=== PATIENT | male | born 1970 | race African-American/Black ===

== ENCOUNTER 2022-10-15 07:30 | Inpatient (IN) ==
[2022-10-11 11:42] LABS: Basophils % 0.5 % (0.0-0.8); Eosinophils # 0.2 10*3/uL (0.0-0.87); Eosinophils % 2.6 % (0.00-10.9); Hematocrit 46.1 VOL% (42.0-52.0); Immature Granulocytes % 0.3 %; Immature Granulocytes Absolute 0.02 #; Lymphocytes # 2.1 10*3/uL (1.4-4.0); Lymphocytes % 35.5 % (21.2-54.2); Mean Corpuscular HGB Conc 32.5 GM/DL (32-36); Mean Corpuscular Volume 85.4 FL (87-102); Mean Platelet Volume 10.2 FL (9.6-12.0); Monocytes # 0.4 10*3/uL (0.11-0.8); Monocytes % 6.3 % (1.7-12.7); Neutrophils % 54.8 % (38.7-73.9); Platelet Count 281 T/CUMM (130-400); Red Cell Distribution Width 14.1 % (9.3-17.3); White Blood Count 5.8 T/CUMM (4-12)
[2022-10-11 11:55] LABS: Albumin 4.1 G/DL (3.4-5.0); Bilirubin,Total 0.6 MG/DL (0.20-1.00); Calcium 9.4 MG/DL (8.5-10.1); Osmolality,Calculated 272.8 MOS/KG (273-304); Potassium 3.7 MMOL/L (3.5-5.1); Total Protein 7.7 G/DL (6.4-8.2)
[~2022-10-15 07:30] MED LIST: ALVIMOPAN 12 MG CAPSULE PO ONE; cefTRIAXone 1,000 MG in SODIUM CHLORIDE 0.9% 100 ML IV ONE
[2022-10-15] MEDS ORDERED: ACETAMINOPHEN 500 MG TABLET PO ONE (08:22)
[2022-10-15] MEDS ORDERED: DIAZEPAM 5 MG TABLET PO ONE (08:22)
[2022-10-15] MEDS ORDERED: GABAPENTIN 400 MG CAPSULE PO ONE (08:22)
[2022-10-15] MEDS ORDERED: FAMOTIDINE 20 MG TABLET PO ONE (08:22)
[2022-10-15] MEDS: LACTATED RINGERS 1,000 ML IV SCH (08:26)
[2022-10-15] MEDS ORDERED: buprenorphine HCL 0.3 MG/ML VIAL ONE (11:57)
[2022-10-15] MEDS ORDERED: ROCURONIUM 50 MG/5 ML VIAL IV ONE ×2 (12:03→14:45)
[2022-10-15] MEDS ORDERED: propofoL 200 MG/20 ML VIAL IV ONE (12:03)
[2022-10-15] MEDS ORDERED: LIDOCAINE 2% 5 ML VIAL ONE (12:03)
[2022-10-15] MEDS ORDERED: fentaNYL 100 MCG/2 ML VIAL ONE (12:04)
[2022-10-15] MEDS ORDERED: MIDAZOLAM 2 MG/2 ML VIAL ONE (12:04)
[2022-10-15] MEDS ORDERED: ePHEDrine 50 MG/ML VIAL ONE (14:15)
[2022-10-15] MEDS ORDERED: ONDANSETRON 4 MG/2 ML VIAL ONE (15:17)
[2022-10-15] MEDS ORDERED: DEXAMETHASONE 4 MG/1 ML VIAL ONE (15:17)
[2022-10-15] MEDS ORDERED: LACTATED RINGERS 1,000 ML IV ONE ×2 (15:24→16:00)
[2022-10-15] MEDS ORDERED: MEPERIDINE 25 MG/1 ML VIAL IV PRN (15:29)
[2022-10-15] MEDS ORDERED: PROMETHAZINE INJ 25 MG in SODIUM CHLORIDE 0.9% 50 ML IV PRN (15:29)
[2022-10-15] MEDS ORDERED: ONDANSETRON 4 MG/2 ML VIAL IV PRN ×2 (15:29→16:48)
[2022-10-15] MEDS ORDERED: HYDROmorphone 1 MG/1 ML SYRINGE IV PRN ×2 (15:29→16:48)
[2022-10-15] MEDS ORDERED: GLYCOPYRROLATE 0.4 MG/2 ML VIAL ONE ×2 (15:33→16:07)
[2022-10-15] MEDS ORDERED: NEOSTIGMINE 10 MG/10 ML VIAL ONE (16:07)
[2022-10-15] MEDS ORDERED: ROPIVACAINE 0.5% 30 ML VIAL ONE (16:43)
[2022-10-15] MEDS ORDERED: PROMETHAZINE 25 MG/1 ML VIAL IM PRN (16:48)
[2022-10-15] MEDS ORDERED: SIMETHICONE CHEW 125 MG TABLET PO PRN (16:48)
[2022-10-15] MEDS ORDERED: oxyCODONE/ACETAMINOPHEN 5-325 MG TABLET PO PRN (16:48)
[2022-10-15] MEDS ORDERED: diphenhydrAMINE 50 MG/1 ML VIAL IV PRN (16:48)
[2022-10-15] MEDS ORDERED: hydrALAZINE 25 MG TABLET PO PRN (16:51)
[2022-10-15] MEDS ORDERED: SEVOFLURANE 1 UNIT/15 MINUTE INH ONE (16:55)
[2022-10-15 17:27] LABS: Mucus,Urine Few /LPF (Occasional); RBC,Urine 13 /HPF (0-4)
[2022-10-15 17:28] LABS: Bilirubin,Urine Negative (Negative); Blood, Urine Small mg/dL (Negative); Glucose,Urine (UA) Negative (Negative); Ketones,Urine 15 mg/dL (Negative); Nitrite,Urine Negative (Negative); Protein,Urine Negative (Negative); Urine Appearance Clear (Clear); Urine Color Yellow (Yellow); Urine Specific Gravity >= 1.030 (1.001-1.035); Urine Urobilinogen 0.2 eU/dL (<2.0)
[2022-10-15] MEDS: ACETAMINOPHEN 325 MG TABLET PO SCH ×2 (17:43→23:17)
[2022-10-15 17:58] LABS: Basophils % 0.2 % (0.0-0.8); Eosinophils % 0.3 % (0.00-10.9); Hematocrit 43.5 VOL% (42.0-52.0); Hemoglobin 13.8 GM/DL (14.0-18.0); Immature Granulocytes % 0.6 %; Immature Granulocytes Absolute 0.07 #; Lymphocytes # 1.2 10*3/uL (1.4-4.0); Lymphocytes % 10.5 % (21.2-54.2); Mean Corpuscular HGB Conc 31.7 GM/DL (32-36); Mean Corpuscular Volume 87.3 FL (87-102); Mean Platelet Volume 9.9 FL (9.6-12.0); Monocytes # 0.3 10*3/uL (0.11-0.8); Monocytes % 2.3 % (1.7-12.7); Neutrophils % 86.1 % (38.7-73.9); Platelet Count 272 T/CUMM (130-400); Red Blood Count 4.98 MC/CUMM (3.8-5.5); Red Cell Distribution Width 13.8 % (9.3-17.3); White Blood Count 11.8 T/CUMM (4-12)
[2022-10-15] MEDS: cefTRIAXone 1,000 MG in SODIUM CHLORIDE 0.9% 100 ML IV SCH (18:07)
[2022-10-15] MEDS: SODIUM CHLORIDE 0.9% 1,000 ML IV SCH (18:07)
[2022-10-15 18:54] LABS: Calcium 8.6 MG/DL (8.5-10.1); Osmolality,Calculated 275.7 MOS/KG (273-304); Potassium 3.7 MMOL/L (3.5-5.1)
[2022-10-15] MEDS: OXYBUTYNIN 5 MG TABLET PO SCH (21:10)
[2022-10-15] MEDS: ALVIMOPAN 12 MG CAPSULE PO SCH (21:10)
[2022-10-15] MEDS: DOCUSATE SODIUM 100 MG CAPSULE PO SCH (21:10)
[2022-10-16] MEDS: SODIUM CHLORIDE 0.9% 1,000 ML IV SCH (01:00)
[2022-10-16 05:12] LABS: Basophils % 0.1 % (0.0-0.8); Hematocrit 40.1 VOL% (42.0-52.0); Hemoglobin 12.8 GM/DL (14.0-18.0); Immature Granulocytes % 0.3 %; Immature Granulocytes Absolute 0.03 #; Lymphocytes # 1.2 10*3/uL (1.4-4.0); Lymphocytes % 10.8 % (21.2-54.2); Mean Corpuscular HGB Conc 31.9 GM/DL (32-36); Mean Corpuscular Volume 86.6 FL (87-102); Mean Platelet Volume 9.7 FL (9.6-12.0); Monocytes # 0.6 10*3/uL (0.11-0.8); Monocytes % 5.8 % (1.7-12.7); Platelet Count 256 T/CUMM (130-400); Red Blood Count 4.63 MC/CUMM (3.8-5.5); Red Cell Distribution Width 13.9 % (9.3-17.3)
[2022-10-16 05:17] LABS: Calcium 8.3 MG/DL (8.5-10.1); Osmolality,Calculated 279.3 MOS/KG (273-304)
[2022-10-16] MEDS: ACETAMINOPHEN 325 MG TABLET PO SCH ×4 (06:54→23:56)
[2022-10-16] MEDS: DOCUSATE SODIUM 100 MG CAPSULE PO SCH ×2 (10:40→21:41)
[2022-10-16] MEDS: OXYBUTYNIN 5 MG TABLET PO SCH ×3 (10:40→21:41)
[2022-10-16] MEDS: ALVIMOPAN 12 MG CAPSULE PO SCH ×2 (10:40→21:41)
[2022-10-16] MEDS: cefTRIAXone 1,000 MG in SODIUM CHLORIDE 0.9% 100 ML IV SCH (16:48)
[2022-10-17] MEDS: ACETAMINOPHEN 325 MG TABLET PO SCH ×2 (05:18→12:13)
[2022-10-17 05:20] LABS: Basophils % 0.1 % (0.0-0.8); Eosinophils # 0.1 10*3/uL (0.0-0.87); Eosinophils % 1.4 % (0.00-10.9); Hemoglobin 12.2 GM/DL (14.0-18.0); Immature Granulocytes % 0.4 %; Immature Granulocytes Absolute 0.03 #; Lymphocytes # 2.2 10*3/uL (1.4-4.0); Lymphocytes % 26.7 % (21.2-54.2); Mean Corpuscular HGB Conc 32.1 GM/DL (32-36); Mean Platelet Volume 9.8 FL (9.6-12.0); Monocytes # 0.6 10*3/uL (0.11-0.8); Monocytes % 7.1 % (1.7-12.7); Neutrophils % 64.3 % (38.7-73.9); Platelet Count 225 T/CUMM (130-400); Red Blood Count 4.37 MC/CUMM (3.8-5.5); White Blood Count 8.3 T/CUMM (4-12)
[2022-10-17 05:42] LABS: Calcium 8.4 MG/DL (8.5-10.1); Osmolality,Calculated 277.3 MOS/KG (273-304); Potassium 3.7 MMOL/L (3.5-5.1)
[2022-10-17] MEDS: LACTATED RINGERS 1,000 ML IV SCH (06:25)
[2022-10-17] MEDS: DOCUSATE SODIUM 100 MG CAPSULE PO SCH (08:49)
[2022-10-17] MEDS: ALVIMOPAN 12 MG CAPSULE PO SCH (08:49)
[2022-10-17] MEDS: OXYBUTYNIN 5 MG TABLET PO SCH (08:49)
[2022-10-17 11:51] VITALS: BP 121/70
== END 2022-10-17 13:30 | disposition home or self-care (01) | DRG 708 ==
LOC: N.SDSINP 07:37 → N.3E 18:28
PROVIDERS: ADMIT Surgery; ATTEND Surgery